=== PATIENT | male | born 1945 | race Caucasian/White ===

== ENCOUNTER → 2023-10-24 13:17 | Outpatient (REF) | payer OTHER, SELFPAY | LOC: RAD 13:17 | PROVIDERS: ATTENDING PHYSICIAN Family Medicine | DX: M25.551 Pain in right hip (principal); M25.552 Pain in left hip | CPT/HCPCS: 73522 ==

== ENCOUNTER 2024-04-23 22:11 | Emergency (ER) | payer OTHER, SELFPAY ==
[2024-04-23 22:25] VITALS: BP 179/71
[2024-04-23 22:30] VITALS: BP 179/71
--- NOTE | 2024-04-23 22:35 | ED.GENMED ---
History of Present Illness
<Korin Blum MD - Last Filed: 04/24/24 00:24>
General
Chief Complaint: Change in Mental Status
Source: patient and records
Time Seen by Provider: 04/23/24 22:26
History of Present Illness
History of Present Illness:
This patient is a 79-year-old male who reportedly was in [facility] and just transferred to a long term today. He was referred from the long term to the emergency department because of agitation and incontinence of stool. History is somewhat
limited from patient. Accu-Chek was noted to be 169. Patient denies any complaints. When asked about events of today he states that he was driving, was pulled over because he was speeding, and was brought here by the police because 'the police
are unfair'. He denies any physical complaints such as chest pain, shortness of breath, abdominal pain, nausea, vomiting.
Past History
<Korin Blum MD - Last Filed: 04/24/24 00:24>
Past History
ED Past Medical History: GERD, Hypercholesterolemia and Other (CVA)
ED Past Surgical History: Other (Hernia, feeding tube)
Social History
Tobacco: Non-smoker
Alcohol: None
Drug: None
Personal:
Living: long term
Phy Exam
<Korin Blum MD - Last Filed: 04/24/24 00:24>
Physical Exam
Physical Exam:
GENERAL: Alert , in no apparent distress
EYE: pupils equal and reactive, no photophobia, EOMI, no nystagmus
NECK: Supple, no significant adenopathy.
ENT: o/p clr, mmm.
CARDIAC: Regular rate and rhythm .
LUNGS: Clear breath sounds bilaterally, no acute respiratory distress, no wheezes/rales/rhonchi
ABDOMEN: Soft, without focal tenderness, no r/g
NEUROLOGICAL: Alert and oriented to person and place but not time, no focal neuro deficits, moves all extremities equally, uncooperative with [id number] exam, cranial nerves II through XII intact
SKIN: Warm and dry, skin intact.
MUSCULOSKELETAL: No edema, well perfused.
PSYCH: Normal and appropriate interaction although confused.
Course
<Korin Blum MD - Last Filed: 04/24/24 00:24>
Orders/Labs/Results
Orders:
Orders
04/23/24 22:34
CT Head W/o Iv Contrast Urgent
Comment:
Reason For Exam: ms change
Cardiac Monitoring- Treatment ONCE
Pulse Ox/cont/shift [RESP] Urgent
Quantity: 1
04/23/24 22:35
Electrocardiogram (*1) Urgent
Reason for Study: Other
Other Reason for Exam: sepsis
EKG- Treatment ONCE
CR Chest - 2 Views Urgent
Comment:
Reason For Exam: ms change
04/23/24 22:53
Complete Blood Count/With Diff Urgent
Comprehensive Metabolic Panel Urgent
Troponin I Urgent
Influenza A+B Rapid Molecular Urgent
LESLEE Source: Nasal Swab
Specimen Description:
04/23/24 23:43
Urinalysis Reflex To Culture Urgent
Date Specimen was Collected: 04/23/24
Time Specimen was Collected: 22:44
04/24/24 04:37
CT Cervical Spine W/o Iv Contr Urgent
Comment:
Reason For Exam: fall out of bed with headstrike
CT Head W/o Iv Contrast Urgent
Comment:
Reason For Exam: fall out of bed with headstrike
Abnormal Lab Results
04/23/24
22:53
RBC 4.40 L 10^6/uL
(4.70-6.10)
MPV 12.3 H fL
(7.4-10.4)
Absolute Monos (auto) 0.9 H 10^3/uL
(0.1-0.6)
Monocytes % 12.8 H %
(1.7-9.3)
Carbon Dioxide 32 H mmol/L
(22-30)
BUN 32 H mg/dl
(9-20)
Glucose 120 H mg/dl
(70-99)
04/23/24 22:53
04/23/24 22:53
Vital Signs
Initial and Last Documented VS:
Initial Vital Signs
BP
179/71
04/23/24 22:25
Last Documented Vital Signs
Temp Pulse Resp BP Pulse Ox
36.8 C 90 27 129/69 95
04/23/24 22:30 04/24/24 05:42 04/24/24 05:42 04/24/24 05:42 04/24/24 05:42
<Francisco Esquivel MD - Last Filed: 04/24/24 07:20>
Orders/Labs/Results
Orders:
Orders
04/23/24 22:34
CT Head W/o Iv Contrast Urgent
Comment:
Reason For Exam: ms change
Cardiac Monitoring- Treatment ONCE
Pulse Ox/cont/shift [RESP] Urgent
Quantity: 1
04/23/24 22:35
Electrocardiogram (*1) Urgent
Reason for Study: Other
Other Reason for Exam: sepsis
EKG- Treatment ONCE
CR Chest - 2 Views Urgent
Comment:
Reason For Exam: ms change
04/23/24 22:53
Complete Blood Count/With Diff Urgent
Comprehensive Metabolic Panel Urgent
Troponin I Urgent
Influenza A+B Rapid Molecular Urgent
LESLEE Source: Nasal Swab
Specimen Description:
04/23/24 23:43
Urinalysis Reflex To Culture Urgent
Date Specimen was Collected: 04/23/24
Time Specimen was Collected: 22:44
04/24/24 04:37
CT Cervical Spine W/o Iv Contr Urgent
Comment:
Reason For Exam: fall out of bed with headstrike
CT Head W/o Iv Contrast Urgent
Comment:
Reason For Exam: fall out of bed with headstrike
Abnormal Lab Results
04/23/24
22:53
RBC 4.40 L 10^6/uL
(4.70-6.10)
MPV 12.3 H fL
(7.4-10.4)
Absolute Monos (auto) 0.9 H 10^3/uL
(0.1-0.6)
Monocytes % 12.8 H %
(1.7-9.3)
Carbon Dioxide 32 H mmol/L
(22-30)
BUN 32 H mg/dl
(9-20)
Glucose 120 H mg/dl
(70-99)
04/23/24 22:53
04/23/24 22:53
Vital Signs
Initial and Last Documented VS:
Initial Vital Signs
BP
179/71
04/23/24 22:25
Last Documented Vital Signs
Temp Pulse Resp BP Pulse Ox
36.8 C 90 27 129/69 95
04/23/24 22:30 04/24/24 05:42 04/24/24 05:42 04/24/24 05:42 04/24/24 05:42
<Francisco Esquivel MD - Last Filed: 04/24/24 07:20>
*Critical Care Note
Total Time (30-74mins, 75-104mins- exclusive of procedures): Not Applicable
<Korin Blum MD - Last Filed: 04/24/24 00:24>
Update Note
Update Note:
Patient presents to the Emergency Department with ____reported agitation and incontinence of stool
Number and Complexity of Problems Addressed at the Encounter
� Chronic conditions affecting care:
� Acute Exacerbation and/or Progression of Chronic Illness:
� Differential Diagnosis includes: But not limited to CVA, increased intracranial pressure, infection, etc. etc.
Amount and/or Complexity of Data to be Reviewed and Analyzed
� I performed an independent evaluation of and my interpretation is:
EKG: Read by me, normal sinus rhythm, LAD, no acute ischemia
CT: Read by vision no acute intracranial process
Xrays: Chest x-ray read by me NAD
Laboratory Studies: Unremarkable
Other:
� Review of other/old records reveals:
� Clinical information was obtained by an independent historian:
� Prescriptions/Medications Considered but not given:
� Further testing considered but not performed:
Risk of Complications and/or Morbidity or Mortality of Patient Management
� Social determinants of health affecting care:
� Discussion with other providers (PCP, Hospitalists, Consultants, etc):
� Escalation of care including admission/observation vs risk of discharge considered: Patient remains calm, not agitated, cooperative pleasant without any complaints. Case discussed with nursing township supervisor at his facility who
essentially refuses to take back until the morning at 8 AM. He states that although patient is not agitated at this time, he does not have any meds to help manage agitation if it was to develop overnight.
ED Attending Note
<Korin Blum MD - Last Filed: 04/24/24 00:24>
-
Portions of this chart may have been created with voice recognition software.� Occasional wrong word or��sound alike� substitutions may have occurred due to the inherent limitations of voice recognition software.
Discharge Plan
Departure
Patient Disposition: [facility]ci/SNF
Date of Disposition: 01/18/25
Time of Disposition: 00:23
Discharge Problem:
Agitation
Instructions: BLOOD PRESSURE
Prescriptions:
No Action
amoxicillin-pot clavulanate 1 TABLET tablet
1 tab PO Q12 Qty: 42 0RF
Referrals:
Marek Heck MD [Family Provider] -
Interventions
Interventions:
*Risk Screen - Suicide Last Done: 04/23/24 22:30
*General Assessment Last Done: 04/23/24 22:30
*Neglect/Abuse Screening Last Done: 04/23/24 22:30
ED- Fall Risk Assessment Last Done: 04/24/24 04:20
*ED COVID-19 Vaccine History Last Done: 04/23/24 22:30
ED- Neurological Assessment Last Done: 04/23/24 23:37
ED Swallowing Screen Last Done: 04/23/24 23:40
Discharge Date and Time
Print Language: TAMAZIGHT
Update
<Francisco Esquivel MD - Last Filed: 04/24/24 07:20>
Progress Note Update
UPDATE (Francisco Esquivel MD)
I have seen and evaluated the patient after signout and reviewed all labs and imaging.
Focused HPI: I resumed care of this 79-year-old male who came to the emergency room from long term due to agitation and stool incontinence. There was apparently concern at his long term that he does not have medications ordered for agitation
and that they cannot manage overnight and so he is being observed here in the emergency room until the morning when he can go back to long term. Unfortunately patient tried to get out of bed tonight while waiting here in the emergency room to go
to the bathroom and had a minor fall from standing. Struck his head on the left side but did not pass out. Immediately helped up back to bed. He says he feels fine and has no complaints.
Physical exam: Patient is awake and alert oriented to self apparently this is his baseline. He answers questions and follows commands. He has very minor contusion of the left forehead. No laceration or abrasion. He has no tenderness of the
cervical spine. He has no tenderness in the thoracic or lumbar spine and no signs of trauma to the back or flank. He has no tenderness of the chest wall/ribs. No abdominal tenderness. He has no reproducible tenderness in the upper or lower
extremities and allows for full passive range of motion without pain.
Medical Decision Makin-year-old male who was seen last night and is pending discharge back to long term in the morning had unfortunately a mechanical fall out of bed when he tried to get up to go to the bathroom himself. Minor head strike
but no other serious injuries noted on full head to toe assessment. Will check CT head and cervical spine in an abundance of caution.
CT head and cervical spine negative for any acute pathology. Patient resting comfortably no complaints. Continue to monitor pending transport home.
[2024-04-23 23:08] LABS: % Basophils 0.3 % (0-2); % Eosinophils 1.6 % (0-6); % Immature Granulocytes 0.3 % (0-0.5); % Lymphocytes 20.5 % (20.5-51.1); % Monocytes 12.8 % (1.7-9.3); % Neutrophils 64.5 % (42.2-75.2); Absolute Eosinophils 0.1 10^3/uL (0-0.7); Absolute Lymphocytes 1.5 10^3/uL (1.2-3.4); Absolute Monocytes 0.9 10^3/uL (0.1-0.6); Absolute Neutrophils 4.7 10^3/uL (1.4-6.5); Hematocrit 40.7 % (39.0-52.0); Hemoglobin 13.5 g/dL (13.0-18.0); Mean Corp Hgb Conc. 33.2 g/dL (33.0-37.0); Mean Corpuscular Hgb 30.7 pg (27.0-31.0); Mean Corpuscular Volume 92.5 fL (80.0-94.0); Mean Platelet Volume 12.3 fL (7.4-10.4); Nucleated Red Blood Cells % 0 % (-); Platelet Count 232 10^3/uL (130-400); Red Cell Dist. Width 13.3 % (11.5-14.5); White Blood Cell Count 7.4 10^3/uL (4.8-10.8)
[2024-04-23 23:29] LABS: ALT (SGPT) 19 U/L (0-50); AST (SGOT) 20 U/L (17-59); Albumin 3.7 g/dl (3.5-5.0); Alkaline Phosphatase 64 U/L (38-126); Blood Urea Nitrogen 32 mg/dl (9-20); Calcium 9.7 mg/dl (8.4-10.2); Carbon Dioxide 32 mmol/L (22-30); Chloride 98 mmol/L (98-107); Estimated Creatinine Clearance 67 ml/min; Glucose 120 mg/dl (70-99); Total Bilirubin 0.2 mg/dl (0.2-1.3); Total Protein 6.4 g/dl (6.3-8.2); eGFR > 60.00
[2024-04-23 23:38] LABS: Sodium 136 mmol/L (135-145)
[2024-04-23 23:44] VITALS: BP 130/78
[2024-04-23 23:47] LABS: Troponin I < 0.012 ng/ml
[2024-04-24] VITALS (7 sets, daily range): BP systolic 107–138; BP diastolic 49–80
[2024-04-24] LABS: Urine Albumin Negative (Neg - Trace); Urine Bilirubin Negative (Negative); Urine Character Slightly Cloudy (Clear); Urine Color Yellow; Urine Glucose Negative (Negative); Urine Ketone Negative (Negative); Urine Leukocyte Negative (Negative); Urine Nitrite Negative (Negative); Urine Occult Blood Negative (Negative); Urine Specific Gravity 1.015 (<1.030); Urine Urobilinogen Negative (Neg - 1+)
--- NOTE | 2024-04-24 05:44 | EDRN ---
Med. sitter device at bedside.
== END 2024-04-24 11:51 ==
LOC: EMR 22:11
PROVIDERS: EMERGENCY PHYSICIAN Emergency Medicine; FAMILY PHYSICIAN Internal Medicine
DX: R45.1 Restlessness and agitation (principal); E78.00 Pure hypercholesterolemia, unspecified; K21.9 Gastro-esophageal reflux disease without esophagitis; Z86.73 Personal history of transient ischemic attack (TIA), and cerebral infarction without residual deficits
CPT/HCPCS: 99285; 70450; 71046; 72125; 80053; 81003; 84484; 85025; 87502; 93005

== ENCOUNTER 2024-05-15 23:44 | Inpatient (IN) | payer OTHER, SELFPAY ==
[2024-05-15] VITALS (11 sets, daily range): BP systolic 96–161; BP diastolic 57–99; BMI 20.2
[2024-05-15 18:33] LABS: % Basophils 0.4 % (0-2); % Eosinophils 1.5 % (0-6); % Immature Granulocytes 0.3 % (0-0.5); % Lymphocytes 26.6 % (20.5-51.1); % Monocytes 9.7 % (1.7-9.3); % Neutrophils 61.5 % (42.2-75.2); Absolute Eosinophils 0.1 10^3/uL (0-0.7); Absolute Lymphocytes 1.8 10^3/uL (1.2-3.4); Absolute Monocytes 0.7 10^3/uL (0.1-0.6); Absolute Neutrophils 4.2 10^3/uL (1.4-6.5); Hematocrit 43.1 % (39.0-52.0); Hemoglobin 14.2 g/dL (13.0-18.0); Mean Corp Hgb Conc. 32.9 g/dL (33.0-37.0); Mean Corpuscular Hgb 30.1 pg (27.0-31.0); Mean Corpuscular Volume 91.3 fL (80.0-94.0); Mean Platelet Volume 12.9 fL (7.4-10.4); Nucleated Red Blood Cells % 0 % (-); Platelet Count 223 10^3/uL (130-400); Red Blood Cell Count 4.72 10^6/uL (4.70-6.10); Red Cell Dist. Width 13.2 % (11.5-14.5); White Blood Cell Count 6.8 10^3/uL (4.8-10.8)
[2024-05-15 18:48] LABS: ALT (SGPT) 19 U/L (0-50); AST (SGOT) 23 U/L (17-59); Albumin 3.6 g/dl (3.5-5.0); Alkaline Phosphatase 72 U/L (38-126); Blood Urea Nitrogen 26 mg/dl (9-20); Calcium 9.6 mg/dl (8.4-10.2); Carbon Dioxide 32 mmol/L (22-30); Chloride 100 mmol/L (98-107); Estimated Creatinine Clearance 57 ml/min; Glucose 95 mg/dl (70-99); Potassium 4.1 mmol/L (3.5-5.1); Sodium 138 mmol/L (135-145); Total Bilirubin 0.7 mg/dl (0.2-1.3); Total Protein 6.4 g/dl (6.3-8.2); eGFR > 60.00
[2024-05-15 18:49] LABS: Urine Albumin 4+ (Neg - Trace); Urine Bilirubin Negative (Negative); Urine Character Bloody (Clear); Urine Color Red; Urine Glucose Negative (Negative); Urine Ketone Negative (Negative); Urine Leukocyte 3+ (Negative); Urine Nitrite Positive (Negative); Urine Occult Blood 4+ (Negative); Urine Specific Gravity 1.015 (<1.030); Urine Urobilinogen Negative (Neg - 1+)
--- NOTE | 2024-05-15 19:39 | ED.GENMED ---
History of Present Illness
<Marbin Tsang PA-C - Last Filed: 05/18/24 09:09>
General
Chief Complaint: Male Genito-Urinary Symptoms
Time Seen by Provider: 05/15/24 18:05
History of Present Illness
History of Present Illness:
79-year-old male with history of TBI (fall of 2023) presents to the emergency department for evaluation of blood in the urine. The patient can provide no history secondary to cognitive dysfunction/aphasia. Nursing facility reports that he was
being changed earlier this afternoon when he noted bloody urine.
Past History
<Marbin Tsang PA-C - Last Filed: 05/18/24 09:09>
Past History
ED Past Medical History: GERD, Hypercholesterolemia and Other (CVA)
ED Past Surgical History: Other (Hernia, feeding tube)
Social History
Tobacco: Non-smoker
Alcohol: None
Drug: None
Personal:
Living: [facility]
Review of Systems
<Marbin Tsang PA-C - Last Filed: 05/18/24 09:09>
Review of Systems
Allergies reviewed?: Yes
All Other Systems: ROS reviewed and negative except as documented in HPI and ROS
Phy Exam
<Marbin Tsang PA-C - Last Filed: 05/18/24 09:09>
Physical Exam
Physical Exam:
GEN: Well appearing, NAD, thin and frail appearing
HEENT: Oral mucosa moist, no scleral icterus
Cardiac: Regular rate and rhythm, no murmurs
Lung: No respiratory distress, no tachypnea
MSK: No gross deformity or injuries
: Blood at the urethral meatus, no penile swelling, no scrotal edema
Skin: Good color, no pallor or jaundice, no rashes
Neuro: Alert, follows commands, profoundly confused
Psych: Calm, cooperative
Course
<Marbin Tsang PA-C - Last Filed: 05/18/24 09:09>
Orders/Labs/Results
Orders:
Orders
05/15/24 18:27
Complete Blood Count/With Diff Urgent
Comprehensive Metabolic Panel Urgent
05/15/24 18:29
Urinalysis Reflex To Culture Urgent
Date Specimen was Collected: 05/15/24
Time Specimen was Collected: 18:28
Urine Microscopic Reflex Cult Urgent
Urine Culture Urgent
LESLEE Source: U
Specimen Description:
Date Specimen was Collected: 05/15/24
Time Specimen was Collected: 18:28
05/15/24 20:18
CT Abd/pel Without Iv Or Oral Urgent
Comment:
Reason For Exam: hematuria
05/15/24 21:26
CBI- Treatment PRN
Solution: NSS
Irrigate to Clear?: Yes
05/15/24 22:29
Admit/Transfer Patient As Directed
Co-Sign Provider:
Level of Care: Inpatient admission
Assign to:: Medical/Surgical
Physician / Group: vivek
Diagnosis: hemorrhagic cystitis
Reason for Hospitalization: hemorrhagic cystitis
Expected length of stay greater than two midnights?: Yes
ELOS- Estimated Length of Stay in days: 2
I certify the patient meets the requirements for IP care: Yes
PRN Pain Medication Management As Directed
May give lesser potent ordered pain med per pt: Yes
preference::
Protocol:: Medication orders for pain may be administered in a
manner that supports deferring to patient preference
when the pt is:
- Requesting an ordered lesser potent pain medication.
Least to most potent pain medications are defined
as: acetaminophen < NSAID < tramadol < opioids
(morphine, oxycodone, hydromorphone).
- Requesting a lesser dose of the same medication IF
ORDERED.
- Requesting a less intrusive route of administration
if both routes are prescribed by the provider (PO <
IV).
05/15/24 22:30
Code Status As Directed
Resuscitation Status: Full Code
05/16/24 00:40
CefTRIAXone [Rocephin] 1,000 mg IV Q24H
05/16/24 00:40
UROLOGY CONSULT Routine
Consulting Provider: Robbie Caro
Was physician already notified: Yes
Activity As Directed
Activity Level: As Tolerated
Pneumatic Compression Sleeves As Directed
Type: Knee high
Vital Signs As Directed
Frequency: Per unit guidelines
DX Deep Vein Thrombosis Video Routine
05/16/24 07:09
Complete Blood Count/With Diff IN AM
Comprehensive Metabolic Panel IN AM
05/16/24 08:00
Polyethylene Glycol Powder [Miralax] 17 grams PO DAILY
Abnormal Lab Results
05/15/24 05/15/24
18:27 18:29
MCHC 32.9 L g/dL
(33.0-37.0)
MPV 12.9 H fL
(7.4-10.4)
Absolute Monos (auto) 0.7 H 10^3/uL
(0.1-0.6)
Monocytes % 9.7 H %
(1.7-9.3)
Carbon Dioxide 32 H mmol/L
(22-30)
BUN 26 H mg/dl
(9-20)
Ur Occult Blood Reflex 4+ A
(Negative)
Urine Nitrite (Reflex) Positive A
(Negative)
Leukocyte Esterase Rfl 3+ A
(Negative)
Urine RBC >100 A /HPF
(0-2)
Urine Albumin (Reflex) 4+ A
(Neg - Trace)
05/15/24 18:27
05/15/24 18:27
Vital Signs
Initial and Last Documented VS:
Initial Vital Signs
Temp Pulse Resp BP Pulse Ox
97.4 F 94 18 161/83 95
05/15/24 18:07 05/15/24 18:07 05/15/24 18:07 05/15/24 18:07 05/15/24 18:07
Last Documented Vital Signs
Temp Pulse Resp BP Pulse Ox
98.4 F 90 20 110/63 97
05/18/24 07:33 05/18/24 07:33 05/18/24 07:33 05/18/24 07:33 05/18/24 07:33
<Derick Gastelum PA-C - Last Filed: 05/15/24 22:09>
Orders/Labs/Results
Orders:
Orders
05/15/24 18:27
Complete Blood Count/With Diff Urgent
Comprehensive Metabolic Panel Urgent
05/15/24 18:29
Urinalysis Reflex To Culture Urgent
Date Specimen was Collected: 05/15/24
Time Specimen was Collected: 18:28
Urine Microscopic Reflex Cult Urgent
Urine Culture Urgent
LESLEE Source: U
Specimen Description:
Date Specimen was Collected: 05/15/24
Time Specimen was Collected: 18:28
05/15/24 20:18
CT Abd/pel Without Iv Or Oral Urgent
Comment:
Reason For Exam: hematuria
05/15/24 21:26
CBI- Treatment PRN
Solution: NSS
Irrigate to Clear?: Yes
05/15/24 22:29
Admit/Transfer Patient As Directed
Co-Sign Provider:
Level of Care: Inpatient admission
Assign to:: Medical/Surgical
Physician / Group: vivek
Diagnosis: hemorrhagic cystitis
Reason for Hospitalization: hemorrhagic cystitis
Expected length of stay greater than two midnights?: Yes
ELOS- Estimated Length of Stay in days: 2
I certify the patient meets the requirements for IP care: Yes
PRN Pain Medication Management As Directed
May give lesser potent ordered pain med per pt: Yes
preference::
Protocol:: Medication orders for pain may be administered in a
manner that supports deferring to patient preference
when the pt is:
- Requesting an ordered lesser potent pain medication.
Least to most potent pain medications are defined
as: acetaminophen < NSAID < tramadol < opioids
(morphine, oxycodone, hydromorphone).
- Requesting a lesser dose of the same medication IF
ORDERED.
- Requesting a less intrusive route of administration
if both routes are prescribed by the provider (PO <
IV).
05/15/24 22:30
Code Status As Directed
Resuscitation Status: Full Code
05/16/24 00:40
CefTRIAXone [Rocephin] 1,000 mg IV Q24H
05/16/24 00:40
UROLOGY CONSULT Routine
Consulting Provider: Robbie Caro
Was physician already notified: Yes
Activity As Directed
Activity Level: As Tolerated
Pneumatic Compression Sleeves As Directed
Type: Knee high
Vital Signs As Directed
Frequency: Per unit guidelines
DX Deep Vein Thrombosis Video Routine
05/16/24 07:09
Complete Blood Count/With Diff IN AM
Comprehensive Metabolic Panel IN AM
05/16/24 08:00
Polyethylene Glycol Powder [Miralax] 17 grams PO DAILY
Abnormal Lab Results
05/15/24 05/15/24
18:27 18:29
MCHC 32.9 L g/dL
(33.0-37.0)
MPV 12.9 H fL
(7.4-10.4)
Absolute Monos (auto) 0.7 H 10^3/uL
(0.1-0.6)
Monocytes % 9.7 H %
(1.7-9.3)
Carbon Dioxide 32 H mmol/L
(22-30)
BUN 26 H mg/dl
(9-20)
Ur Occult Blood Reflex 4+ A
(Negative)
Urine Nitrite (Reflex) Positive A
(Negative)
Leukocyte Esterase Rfl 3+ A
(Negative)
Urine RBC >100 A /HPF
(0-2)
Urine Albumin (Reflex) 4+ A
(Neg - Trace)
05/15/24 18:27
05/15/24 18:27
Vital Signs
Initial and Last Documented VS:
Initial Vital Signs
Temp Pulse Resp BP Pulse Ox
97.4 F 94 18 161/83 95
05/15/24 18:07 05/15/24 18:07 05/15/24 18:07 05/15/24 18:07 05/15/24 18:07
Last Documented Vital Signs
Temp Pulse Resp BP Pulse Ox
98.4 F 90 20 110/63 97
05/18/24 07:33 05/18/24 07:33 05/18/24 07:33 05/18/24 07:33 05/18/24 07:33
<Derick Gastelum PA-C - Last Filed: 05/15/24 22:09>
*Critical Care Note
Total Time (30-74mins, 75-104mins- exclusive of procedures): Not Applicable
<Derick Gastelum PA-C - Last Filed: 05/15/24 22:09>
Update Note
Update Note:
Received care of patient upon signout pending CT. Patient from facility with history of TBI on Lovenox. Presented with gross hematuria. Primary provider contacted urology who recommended CBI. CBI is currently infusing. CT shows blood products
in the bladder but no other obstructive uropathy. Will admit patient to hospital for gross hematuria
ED Attending Note
<Marbin Tsang PA-C - Last Filed: 05/18/24 09:09>
-
Portions of this chart may have been created with voice recognition software.� Occasional wrong word or��sound alike� substitutions may have occurred due to the inherent limitations of voice recognition software.
Discharge Plan
Departure
Patient Disposition: Admit
Date of Disposition: 05/15/24
Time of Disposition: 22:09
Presentation/result/management discussed w/ accepting MD/DO: Hospitalist
Discharge Problem:
Gross hematuria
Interventions
Interventions:
*Risk Screen - Suicide Last Done: 05/15/24 18:15
*General Assessment Last Done: 05/15/24 18:15
*Neglect/Abuse Screening Last Done: 05/15/24 18:15
*ED COVID-19 Vaccine History Last Done: 05/16/24 00:30
*Nursing Disposition Last Done: 05/15/24 23:58
ED-Male Genitourinary Assessment Last Done: 05/15/24 18:15
Discharge Date and Time
Discharge Date/Time: 05/15/24 23:58
[2024-05-15 20:34] LABS: Urine Red Blood Cell >100 /HPF (0-2)
--- NOTE | 2024-05-15 22:32 | HPS.HSE ---
Family Physician
-
Family Physician: Marek Heck
Chief Complaint
-
bloody urine
History of Present Illness
79-year-old male past medical history of TBI in fall 2023, GERD, hypercholesteremia, CVA, presenting for blood in the urine. Patient cannot provide any accurate history due to cognitive dysfunction. Nursing facility noted that he was being changed
and they noted bloody urine. Denies fevers or chills. Denies any burning with urination.
Patient denies any constipation. He states he had a bowel movement yesterday. Denies nausea or vomiting.
Medical History
Past Medical History
Past Medical History: Reports Other (TBI in fall 2023, GERD, hypercholesteremia, CVA)
Past Surgical History: Reports None
Social History
Tobacco: Non-smoker
Alcohol: None
Drug: None
Family History
Family History: Not pertinent
Allergies / Home Medications
Allergies reflects when Allergies were last updated in [facility].
Home Medications with original date entered in [facility]
Allergy/Medication List:
Allergies
Allergy/AdvReac Type Severity Reaction Status Date / Time
fentanyl Allergy Unknown Unknown Verified 05/15/24 18:07
Tetanus Vaccines and Toxoid Allergy Unknown Verified 05/15/24 18:07
[Tetanus Vaccines & Toxoid]
Home Medications
amoxicillin 875 mg-potassium clavulanate 125 mg tablet 1 tab PO Q12 #42 tabs 05/05/19
Review of Systems
-
History Source: Patient
A 12 point ROS was completed and negative except as noted: Yes
Constitutional: Reports No Symptoms
EENT: Reports No Symptoms
Respiratory: Reports No Symptoms
Cardiac: Reports No Symptoms
Abdomen/GI: Reports No Symptoms
: Reports No Symptoms
Musculoskeletal: Reports No Symptoms
Skin: Reports No Symptoms
Neurological: Reports No Symptoms
Endocrine: Reports No Symptoms
Hematologic/Lymphatic: Reports No Symptoms
Psych: Reports No Symptoms
Physical Exam
Vital Signs
Vital Signs
Temp Pulse Resp BP Pulse Ox
97.4 F 102 12 116/73 97
05/15/24 18:07 05/15/24 21:33 05/15/24 21:15 05/15/24 21:00 05/15/24 20:45
Physical Exam
General: Well Developed, Well Nourished and No Apparent Distress
HEENT: NormoCephalic, Moist mucous membranes and Atraumatic
Respiratory: Clear
Cardiac: S1/S2 and Regular Rhythm; No Murmur or Rub
GI: Soft, Non Tender, Non Distended and Normal Bowel Sounds; No Organomegaly
Rectal: Deferred by Provider
Musculoskeletal: No Clubbing, No Cyanosis and No Edema
Skin: No Rash
Neuro: Nonfocal/grossly intact
Laboratory Results
-
05/15/24 18:27
05/15/24 18:27
Laboratory Results
Total Bilirubin 0.7 mg/dl (0.2-1.3) 05/15/24 18:27
AST 23 U/L (17-59) 05/15/24 18:27
ALT 19 U/L (0-50) 05/15/24 18:27
Alkaline Phosphatase 72 U/L (38-126) 05/15/24 18:27
Data Reviewed
-
Lab Data: Labs Reviewed by me
Old Records: Reviewed
Impression/Plan
-
IMPRESSION:
PLAN:
# Hematuria possibly secondary to hemorrhagic cystitis
-Urinalysis showing +3 leukocyte esterase, positive nitrate
-CT scan of abdomen pelvis shows hyperdensity within the urinary bladder likely representing blood products unclear etiology, no obstructive urolithiasis, mild urinary bladder wall thickening
-urine culture pending
-CBI started
-Ceftriaxone
-Urology consulted
Subcutaneous gas along right rectus muscle
-No free air
-As per CT scan
-Unclear etiology as history cannot be obtained
Fecal impaction
-Patient states he had bowel movement yesterday, abdomen not distended and only mildly tender
-Large amount of stool within the distal colon/rectum distended to 7.2 cm, colonic diverticulosis
-Start MiraLAX
Hiatal hernia/GERD
History of TBI in fall 2023
Hypercholesterolemia
Prior CVA
Full code
DVT prophylaxis�SCDs
Regular diet
[2024-05-16 00:15] VITALS: BP 141/91; BMI 16.9
[2024-05-16] MEDS: ROCEPHIN 1000 MG IV ×2 (01:45→23:52)
[2024-05-16] MEDS: FLUSH (NSS) 2 FLUSH IV ×2 (01:46→23:53)
[2024-05-16] MEDS: NSS (PRESERVATIVE FREE) 10 ML IV (01:46)
[2024-05-16] MEDS: STERILE WATER FOR INJECTION 10 ML IV ×2 (01:46→23:52)
[2024-05-16] MEDS: PROTONIX IV 40 MG IV (01:46)
[2024-05-16] MEDS: VALIUM INJECTION 2 MG IV (05:44)
--- NOTE | 2024-05-16 06:30 | PTCARENOTE ---
Pt arrived to floor from ED with 24Fr 3-way catheter that was placed in ED, draining dark punch colored urine. Pt pleasant and aware, alert to self but with pronounced aphasia so conversation was very limited. Patient had significant bladder spasms
from intermittent catheter obstructions from clot fragments through out the night requiring multiple irrigations. Urology made aware and advised exchanging 3-way catheter. Bladder spasms from intermittent catheter obstructions from clot fragments
continued with after new 3 way catheter requiring multiple irrigations again. multiple small clot fragments out and urine would lighten briefly, then return to punch red requiring irrigation again. Urology rounded and hand-irrigated the 3-way
catheter w/ return of moderate clot burden (mostly fragmented) w/ IMMEDIATE clearing of urine to light pink. Continue to monitor for clots, attempt to keep CBI running moderate speed, treat pain.
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
[2024-05-16 07:00] VITALS: BP 127/82
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
[2024-05-16 07:43] LABS: % Basophils 0.2 % (0-2); % Eosinophils 0.1 % (0-6); % Immature Granulocytes 0.4 % (0-0.5); % Lymphocytes 15.3 % (20.5-51.1); % Monocytes 9.8 % (1.7-9.3); % Neutrophils 74.2 % (42.2-75.2); Absolute Immature Granulocytes 0.1 10^3/uL (0-0.05); Absolute Lymphocytes 2.2 10^3/uL (1.2-3.4); Absolute Monocytes 1.4 10^3/uL (0.1-0.6); Absolute Neutrophils 10.4 10^3/uL (1.4-6.5); Hematocrit 41.3 % (39.0-52.0); Hemoglobin 13.3 g/dL (13.0-18.0); Mean Corp Hgb Conc. 32.2 g/dL (33.0-37.0); Mean Corpuscular Hgb 29.6 pg (27.0-31.0); Mean Platelet Volume 13.1 fL (7.4-10.4); Nucleated Red Blood Cells % 0 % (-); Platelet Count 255 10^3/uL (130-400); Red Blood Cell Count 4.49 10^6/uL (4.70-6.10); Red Cell Dist. Width 13.2 % (11.5-14.5)
[2024-05-16 08:02] LABS: ALT (SGPT) 18 U/L (0-50); AST (SGOT) 23 U/L (17-59); Albumin 3.2 g/dl (3.5-5.0); Alkaline Phosphatase 78 U/L (38-126); Blood Urea Nitrogen 27 mg/dl (9-20); Calcium 9.4 mg/dl (8.4-10.2); Carbon Dioxide 32 mmol/L (22-30); Chloride 102 mmol/L (98-107); Estimated Creatinine Clearance 62 ml/min; Glucose 119 mg/dl (70-99); Sodium 139 mmol/L (135-145); Total Bilirubin 0.5 mg/dl (0.2-1.3); Total Protein 6.2 g/dl (6.3-8.2); eGFR > 60.00
[2024-05-16] MEDS: MIRALAX PO (08:35)
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
[2024-05-16 15:00] VITALS: BP 120/82
[2024-05-16] MEDS: PEPCID 20 MG PO (20:20)
[2024-05-16] MEDS: DITROPAN 5 MG PO (20:20)
[2024-05-16] MEDS: CRESTOR 10 MG PO (22:11)
[2024-05-16] MEDS: DESYREL 150 MG PO (22:11)
[2024-05-16] MEDS: REFRESH EYE DROPS (PF) 1 DROPS OPHTH (22:11)
[2024-05-16] MEDS: SENOKOT 8.6 MG PO (22:12)
[2024-05-16] MEDS: SEROQUEL 100 MG PO (22:12)
[2024-05-16 23:03] VITALS: BP 136/79
[2024-05-17 07:05] VITALS: BP 114/62
[2024-05-17 07:17] LABS: % Basophils 0.4 % (0-2); % Eosinophils 0.8 % (0-6); % Immature Granulocytes 0.4 % (0-0.5); % Lymphocytes 21.9 % (20.5-51.1); % Monocytes 11.3 % (1.7-9.3); % Neutrophils 65.2 % (42.2-75.2); Absolute Eosinophils 0.1 10^3/uL (0-0.7); Absolute Lymphocytes 1.8 10^3/uL (1.2-3.4); Absolute Monocytes 0.9 10^3/uL (0.1-0.6); Absolute Neutrophils 5.2 10^3/uL (1.4-6.5); Hematocrit 39.2 % (39.0-52.0); Hemoglobin 13.1 g/dL (13.0-18.0); Mean Corp Hgb Conc. 33.4 g/dL (33.0-37.0); Mean Corpuscular Hgb 29.7 pg (27.0-31.0); Mean Corpuscular Volume 88.9 fL (80.0-94.0); Nucleated Red Blood Cells % 0 % (-); Red Blood Cell Count 4.41 10^6/uL (4.70-6.10); Red Cell Dist. Width 13.2 % (11.5-14.5)
[2024-05-17 07:20] LABS: Blood Urea Nitrogen 20 mg/dl (9-20); Calcium 9.6 mg/dl (8.4-10.2); Carbon Dioxide 26 mmol/L (22-30); Chloride 102 mmol/L (98-107); Estimated Creatinine Clearance 71 ml/min; Glucose 88 mg/dl (70-99); Potassium 4.2 mmol/L (3.5-5.1); Sodium 138 mmol/L (135-145); eGFR > 60.00
[2024-05-17 07:39] LABS: Mean Platelet Volume 13.4 fL (7.4-10.4); Platelet Count 203 10^3/uL (130-400)
--- NOTE | 2024-05-17 07:41 | W.PN.URO.CBU ---
Today's Communication / Plan
-
- OK for diet
- HOLD Xarelto
- Wean CBI through day to keep urine clear and clot-free in tubing
- Hand irrigation q4-6 hrs PRN clot obstruction
- Possible voiding trial 05/18 AM
Assessment / Plan
-
Hematuria with clot retention
H/H stable
UCx => pending
CTAP w/o IV contrast => lobulated increased density within the posterior aspect of the urinary bladder, most likely representing blood products/hematoma. Slight stranding of the fat anterior to the urinary bladder, suggesting the possibility of
cystitis.
24Fr 3-way catheter placed in ED - patient had significant bladder spasms from intermittent catheter obstructions from clot fragments o/n.
Required multiple irrigations by RNs.
Urology advised exchanging for new 3-way catheter.
Urology hand-irrigated 3-way catheter in AM 05/16 w/ return of moderate clot burden (mostly fragmented) w/ IMMEDIATE clearing of urine to light pink.
No evidence of bladder tumor/mass noted on CT imaging - appears to be clot burden since onset of initial bleeding.
Diagnosis
-
Date of Service: May 17, 2024
-
Patient Diagnosis:
Hematuria with clot retention
Subjective
-
Aphasic - difficult to verbalize.
No apparent pain or discomfort.
CBI low rate w/ clear urine in tubing.
Objective
-
Vital Signs
Temp Pulse Resp BP Pulse Ox
97.5 F 115 18 114/62 98
05/17/24 07:05 05/17/24 07:05 05/17/24 07:05 05/17/24 07:05 05/17/24 07:05
Intake and Output
05/16/24 05/17/24 05/18/24
06:59 06:59 06:59
Intake Total 480 / 480
Output Total 50 / 50 1999
Balance -50 / -50 -1520 / -1520
Intake:
Oral fluids 480 / 480
Output:
Straight cath output 150 / 150
True Urine Output from CBI -100 / -100 1999
True urine output from hand 0 / 0
irrigation
Laboratory Results
05/17/24 06:07
05/17/24 06:07
Review of Systems
-
Unable to obtain full review of systems at this time due to: Dementia and Acuity
Physical Exam
-
General - well developed, well nourished, no acute distress
Abdomen - soft, non-tender, non-distended
Genitalia - 24Fr 3-way catheter w/ clear urine in tubing w/o clots on low rate CBI
Skin - warm & dry with no rash
Extremities - no clubbing, no cyanosis, no edema
Care Review
Data Reviewed
Discussed with: Hospitalist and Nursing
CT Scan: Report Pers Reviewed and Image Pers Reviewed
Total Time Spent with Patient (in minutes): 25
[2024-05-17] MEDS: MIRALAX PO ×2 (08:11)
[2024-05-17] MEDS: SYMMETREL SYRUP 50 MG PO (08:12)
[2024-05-17] MEDS: THERAGRAN 1 TABLET PO (08:12)
[2024-05-17] MEDS: SEROQUEL 25 MG PO (08:12)
[2024-05-17] MEDS: REFRESH EYE DROPS (PF) 1 DROPS OPHTH ×4 (08:12→22:12)
[2024-05-17] MEDS: PEPCID 20 MG PO ×2 (08:12→20:05)
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
--- NOTE | 2024-05-17 11:15 | PTCARENOTE ---
Pt pulling at medel catheter this morning, pulled off stat lock. CBI running slowly with clear urine, no clots. Pt place in 4 point restraints with b/l mitts due to pulling at his tubing. See restraint documentation. Pt calm now with restraints.
Stat lock changed on medel this AM.
[2024-05-17 13:38] VITALS: BMI 16.9
[2024-05-17 15:05] VITALS: BP 116/67
--- NOTE | 2024-05-17 15:41 | PTOTSP ---
ST Acute Care Evaluation
Pt currently presents with clinical signs of mild to moderate oropharyngeal dysphagia as evidenced by baseline need for minced and moist solids with prolonged mastication, bolus formation, and bolus clearance as well as baseline diet for mildly
thick liquids with piecemeal deglutition for both solids and liquids indicative of suspected pharyngeal residue that requires subsequent swallows to clear.
Recommendations:
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
- No ARHP just yet due to intermittent lethargy.
- Aspiration and reflux precautions: Pt must be fully awake, alert, and upright for all PO intake; close supervision/assistance for PO intake; small bites/sips; alternate bites/sips; check oral cavity for clearance; slow intake rate.
- ASSEMBLER PING PONG TABLE to f/u re: diet tolerance, trial diet upgrades, trial/assess candidacy for ARHP, and to determine if pt would benefit from a repeat instrumental swallow study.
- Consider a nutrition consult - pt's expressed concerns about recent weight loss (she reports a ~10lb weight loss since admission to [facility]).
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
[2024-05-17] MEDS: DESYREL 150 MG PO (22:12)
[2024-05-17] MEDS: SENOKOT 8.6 MG PO (22:12)
[2024-05-17] MEDS: SEROQUEL 100 MG PO (22:12)
[2024-05-17] MEDS: CRESTOR 10 MG PO (22:13)
[2024-05-17] MEDS: CATAPRES 0.1 MG PO (22:18)
[2024-05-17 23:09] VITALS: BP 131/72
[2024-05-17] MEDS: STERILE WATER FOR INJECTION 10 ML IV (23:25)
[2024-05-17] MEDS: ROCEPHIN 1000 MG IV (23:25)
[2024-05-17] MEDS: FLUSH (NSS) 2 FLUSH IV (23:26)
[2024-05-18 07:33] VITALS: BP 110/63
[2024-05-18 08:17] LABS: % Basophils 0.2 % (0-2); % Eosinophils 1.6 % (0-6); % Immature Granulocytes 0.3 % (0-0.5); % Lymphocytes 18.4 % (20.5-51.1); % Monocytes 10.4 % (1.7-9.3); % Neutrophils 69.1 % (42.2-75.2); Absolute Eosinophils 0.2 10^3/uL (0-0.7); Absolute Lymphocytes 1.9 10^3/uL (1.2-3.4); Absolute Monocytes 1.1 10^3/uL (0.1-0.6); Hematocrit 35.5 % (39.0-52.0); Hemoglobin 11.8 g/dL (13.0-18.0); Mean Corp Hgb Conc. 33.2 g/dL (33.0-37.0); Mean Corpuscular Volume 90.3 fL (80.0-94.0); Mean Platelet Volume 13.2 fL (7.4-10.4); Nucleated Red Blood Cells % 0 % (-); Platelet Count 200 10^3/uL (130-400); Red Blood Cell Count 3.93 10^6/uL (4.70-6.10); Red Cell Dist. Width 13.2 % (11.5-14.5); White Blood Cell Count 10.2 10^3/uL (4.8-10.8)
[2024-05-18] MEDS: MIRALAX 17 GRAMS PO (08:32)
[2024-05-18] MEDS: THERAGRAN 1 TABLET PO (08:40)
[2024-05-18] MEDS: MIRALAX PO (08:41)
[2024-05-18] MEDS: PEPCID 20 MG PO ×2 (08:41→21:36)
[2024-05-18] MEDS: SYMMETREL SYRUP 50 MG PO (08:41)
[2024-05-18] MEDS: SEROQUEL 25 MG PO (08:41)
[2024-05-18 08:42] LABS: Blood Urea Nitrogen 20 mg/dl (9-20); Calcium 9.3 mg/dl (8.4-10.2); Carbon Dioxide 26 mmol/L (22-30); Chloride 104 mmol/L (98-107); Estimated Creatinine Clearance 82 ml/min; Glucose 114 mg/dl (70-99); Potassium 3.9 mmol/L (3.5-5.1); Sodium 138 mmol/L (135-145); eGFR > 60.00
[2024-05-18] MEDS: REFRESH EYE DROPS (PF) 1 DROPS OPHTH ×4 (08:51→21:39)
--- NOTE | 2024-05-18 10:12 | PN.CDI ---
CDI
- -
CDI:
Physician Documentation Request
Admit Date: 05/15/24 23:44
Dear Doctor Mary Alice,
Please review the following and provide your response in the progress notes.
Clinical Indicators:
Digital Account Manager, 05/17
#...RD able to visulize temporal wasting, protrusion of clavical, orbital area sunken in,
#...quad and calf muscle wasting.
#CBW: 124 lbs 9.6 oz BMI 16.9 underweight range (05/16),
#...Pts weight previous visit listed s 135 lbs 04/23 reflective of a 11 lb (8%) weight loss
#...in 1 month signficant.
#With weight loss of > 5% in 1 month and observed muscle and fat wasting pt
#...meets AND/ASPEN criteria for severe protein calorie malnutrition of chronic illness.
Based on the above and your clinical assessment, please clarify the severity of the malnutrition:
Severe protein calorie malnutrition of chronic illness
Other (please specify)
[place] Criteria (ACP Hospitalist 2017)
2 or more criteria must be present for either
non severe or severe malnutrition
Note that the criteria differs related to the
presence of an acute or chronic illness
Chronic Illness
Energy Intake Non Severe: <75% for >1 month
Severe: <75% for >1 month
Weight Loss Non Severe: 5% over 1 month
7.5% over 3 months
10% over 6 months
20% over 1 year
Severe: >5% over 1 month
>7.5% over 3 months
>10% over 6 months
>20% over 1 year
Body Fat Non Severe: Mild Loss
Severe: Severe Loss
Muscle Mass Non Severe: Mild Loss
Severe: Severe Loss
Use of terms such as suspected, likely, concern for, or probable (associated with a specific diagnosis that is being evaluated, monitored, or treated as if it exists) are acceptable and can be coded in the inpatient setting, when documented at the
time of discharge.
Thank you,
Kathia Solorio RN BSN CCDS
CDI Specialist
please contact via tiger text
Please use your independent medical judgment in providing your response.
--- NOTE | 2024-05-18 10:20 | PN.CDI ---
CDI
- -
CDI:
Physician Documentation Request
Admit Date: 05/15/24 23:44
Dear Doctor Mary Alice,
Please review the following and provide your response in the progress notes.
Clinical Indicators:
PN, 05/17
#- HOLD Xarelto and any other blood thinners for now
#Hematuria (with clot retention) possibly secondary to hemorrhagic cystitis
Please clarify the relationship, if any, between these conditions:
Yes, Hemorrhagic Cystitis is enhanced by/associated with/due to Xarelto.
No, Hemorrhagic Cystitis is not enhanced by/associated with/due to Xarelto but it is due to ___. (Please specify)
Other (please specify)
Use of terms such as suspected, likely, concern for, or probable (associated with a specific diagnosis that is being evaluated, monitored, or treated as if it exists) are acceptable and can be coded in the inpatient setting, when documented at the
time of discharge.
Thank you,
Kathia Solorio RN BSN CCDS
CDI Specialist
please contact via tiger text
Please use your independent medical judgment in providing your response.
--- NOTE | 2024-05-18 10:25 | PN.CDI ---
CDI
- -
CDI:
Physician Documentation Request
Admit Date: 05/15/24 23:44
Dear Doctor Mary Alice,
Please review the following and provide your response in the progress notes.
Clinical Indicators:
Laboratory Tests
05/15/24 05/16/24 05/17/24
18:27 07:09 06:07
Hgb 14.2 13.3 13.1
Hct 43.1 41.3 39.2
05/18/24
07:35
Hgb 11.8 L
Hct 35.5 L
Based on the above and your clinical assessment, please clarify, the most likely condition/diagnosis evaluated, monitored and/or treated?
Acute blood loss anemia
Abnormal lab value, clinically insignificant
Other (please specify)
Use of terms such as suspected, likely, concern for, or probable (associated with a specific diagnosis that is being evaluated, monitored, or treated as if it exists) are acceptable and can be coded in the inpatient setting, when documented at the
time of discharge.
Thank you,
Kathia Solorio RN BSN CCDS
CDI Specialist
please contact via tiger text
Please use your independent medical judgment in providing your response.
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
--- NOTE | 2024-05-18 11:37 | W.PN.URO.CBU ---
Today's Communication / Plan
-
- Continue IV Ceftriaxone pending Cx data
- Advise 7-10 day treatment course for cUTI
- Clamp CBI
- Voiding trial in AM 05/19 (Fri) if urine looks reasonable
D/w RN.
D/w Hospitalist.
Assessment / Plan
-
Hematuria with clot retention
cUTI
H/H stable
UCx => GN bacilli
CTAP w/o IV contrast => lobulated increased density within the posterior aspect of the urinary bladder, most likely representing blood products/hematoma. Slight stranding of the fat anterior to the urinary bladder, suggesting the possibility of
cystitis.
24Fr 3-way catheter placed in ED - patient had significant bladder spasms from intermittent catheter obstructions from clot fragments o/n.
Required multiple irrigations by RNs.
Urology advised exchanging for new 3-way catheter.
Urology hand-irrigated 3-way catheter in AM 05/16 w/ return of moderate clot burden (mostly fragmented) w/ IMMEDIATE clearing of urine to light pink.
No evidence of bladder tumor/mass noted on CT imaging - appears to be clot burden since onset of initial bleeding.
Diagnosis
-
Date of Service: May 18, 2024
-
Patient Diagnosis:
Hematuria with clot retention
cUTI - Gram negative bacilli on UCx
Subjective
-
Aphasic, difficult to obtain history.
Urine clear in tubing.
Objective
-
Vital Signs
Temp Pulse Resp BP Pulse Ox
98.4 F 90 20 110/63 97
05/18/24 07:33 05/18/24 07:33 05/18/24 07:33 05/18/24 07:33 05/18/24 07:33
Intake and Output
05/17/24 05/18/24 05/19/24
06:59 06:59 06:59
Intake Total 480 / 480 0 / 0
Output Total 1999 700 / 700
Balance -1520 / -1520 -700 / -700
Intake:
Oral fluids 480 / 480 0 / 0
Output:
True Urine Output from CBI 1999 700 / 700
True urine output from hand 0 / 0
irrigation
Laboratory Results
05/18/24 07:35
05/18/24 07:35
Physical Exam
-
General - no acute distress
Abdomen - soft, non-tender, non-distended
Genitalia - normal, 3-way catheter - urine clear in tubing
Extremities - no clubbing, no cyanosis, no edema
Care Review
Data Reviewed
Discussed with: Hospitalist and Nursing
CT Scan: Report Pers Reviewed and Image Pers Reviewed
[2024-05-18 15:13] VITALS: BP 115/71
[2024-05-18 21:33] VITALS: BP 117/70
[2024-05-18] MEDS: SENOKOT 8.6 MG PO (21:37)
[2024-05-18] MEDS: CRESTOR 10 MG PO (21:37)
[2024-05-18] MEDS: DESYREL 150 MG PO (21:38)
[2024-05-18] MEDS: CATAPRES 0.1 MG PO (21:38)
[2024-05-18] MEDS: SEROQUEL 100 MG PO (21:38)
[2024-05-18 23:35] VITALS: BP 113/69
[2024-05-19] MEDS: STERILE WATER FOR INJECTION 10 ML IV ×2 (00:23→17:43)
[2024-05-19] MEDS: ROCEPHIN 1000 MG IV (00:24)
[2024-05-19 07:48] LABS: % Basophils 0.2 % (0-2); % Eosinophils 3.6 % (0-6); % Immature Granulocytes 0.6 % (0-0.5); % Lymphocytes 16.8 % (20.5-51.1); % Monocytes 11.9 % (1.7-9.3); % Neutrophils 66.9 % (42.2-75.2); Absolute Eosinophils 0.3 10^3/uL (0-0.7); Absolute Immature Granulocytes 0.1 10^3/uL (0-0.05); Absolute Lymphocytes 1.4 10^3/uL (1.2-3.4); Absolute Neutrophils 5.5 10^3/uL (1.4-6.5); Hematocrit 36.5 % (39.0-52.0); Hemoglobin 11.7 g/dL (13.0-18.0); Mean Corp Hgb Conc. 32.1 g/dL (33.0-37.0); Mean Corpuscular Hgb 29.3 pg (27.0-31.0); Mean Corpuscular Volume 91.3 fL (80.0-94.0); Mean Platelet Volume 12.8 fL (7.4-10.4); Nucleated Red Blood Cells % 0 % (-); Platelet Count 216 10^3/uL (130-400); Red Cell Dist. Width 13.3 % (11.5-14.5); White Blood Cell Count 8.2 10^3/uL (4.8-10.8)
[2024-05-19 07:57] VITALS: BP 115/68
[2024-05-19] MEDS: REFRESH EYE DROPS (PF) 1 DROPS OPHTH ×4 (09:13→21:21)
[2024-05-19] MEDS: PEPCID 20 MG PO ×2 (09:13→21:19)
[2024-05-19] MEDS: SYMMETREL SYRUP 50 MG PO (09:14)
[2024-05-19] MEDS: SEROQUEL 25 MG PO (09:14)
[2024-05-19] MEDS: THERAGRAN 1 TABLET PO (09:14)
[2024-05-19] MEDS: MIRALAX 17 GRAMS PO (09:14)
[2024-05-19 11:09] LABS: Blood Urea Nitrogen 21 mg/dl (9-20); Calcium 9.4 mg/dl (8.4-10.2); Carbon Dioxide 29 mmol/L (22-30); Chloride 105 mmol/L (98-107); Estimated Creatinine Clearance 71 ml/min; Glucose 116 mg/dl (70-99); Potassium 3.9 mmol/L (3.5-5.1); Sodium 141 mmol/L (135-145); eGFR > 60.00
--- NOTE | 2024-05-19 13:59 | CM ---
Met with patient and Valeri
Valeri states she is holding bed at [facility] - confirmed this with Nissa liaison
Referral in [facility]
Will need to obtain insurance auth
PLAN: [facility] when medically stable
Report #: [phone]
Fax #: [phone]
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
[2024-05-19 15:05] VITALS: BP 119/70
--- NOTE | 2024-05-19 15:14 | PTOTSP ---
Dysphagia Therapy
Impression: Concern for mild to moderate oral/pharyngeal dysphagia this admission. At risk for changes to sensory response to aspiration given TBI. Video swallow study warranted to objectively assess swallow function prior to liquid advancement.
Plan of care:
1. Continue diet as ordered of IDDSI Level 5 Minced and Moist, IDDSI Level 2 Mildly Thick Liquids
2. Medications: crushed in puree
3. Strategies: awake, alert, and upright for all PO intake, full supervision/assistance, small bites/sips, alternate bites/sips, check oral cavity for clearance, slow intake rate
4. Aspiration Risk Hydration Protocol - SMALL SINGLE SIPS OF WATER (pinch straw) with supervision, only after oral care, only between meals, only without any other food/drink/meds
5. Video swallow study
[2024-05-19] MEDS: MERREM 500 MG IV (17:43)
[2024-05-19 21:18] VITALS: BP 124/75
[2024-05-19] MEDS: SENOKOT 8.6 MG PO (21:20)
[2024-05-19] MEDS: CRESTOR 10 MG PO (21:20)
[2024-05-19] MEDS: SEROQUEL 100 MG PO (21:20)
[2024-05-19] MEDS: CATAPRES 0.1 MG PO (21:20)
[2024-05-19] MEDS: DESYREL 150 MG PO (21:21)
[2024-05-19 23:00] VITALS: BP 110/64
[2024-05-20] MEDS: STERILE WATER FOR INJECTION 10 ML IV ×5 (00:01→23:00)
[2024-05-20] MEDS: MERREM 500 MG IV ×5 (00:01→23:00)
--- NOTE | 2024-05-20 05:00 | PTCARENOTE ---
Patient had medel D/Star on 05/20 at 6am for voiding trial. This RN was told that patient did not void during the day. Patient voided a moderate amount of urine around 9pm. Patient did not void for 6 hours after. Bladder scan showed 350 ml at 3am.
Bladder scan repeated at 5am showing 401 ml. KEAGAN Henriquez notified. Orders for straight cath placed. Care ongoing.
[2024-05-20 07:05] LABS: % Basophils 0.5 % (0-2); % Eosinophils 5.8 % (0-6); % Immature Granulocytes 0.3 % (0-0.5); % Lymphocytes 24.5 % (20.5-51.1); % Monocytes 13.6 % (1.7-9.3); % Neutrophils 55.3 % (42.2-75.2); Absolute Eosinophils 0.4 10^3/uL (0-0.7); Absolute Lymphocytes 1.5 10^3/uL (1.2-3.4); Absolute Monocytes 0.8 10^3/uL (0.1-0.6); Absolute Neutrophils 3.4 10^3/uL (1.4-6.5); Hematocrit 37.1 % (39.0-52.0); Mean Corp Hgb Conc. 32.3 g/dL (33.0-37.0); Mean Corpuscular Hgb 29.8 pg (27.0-31.0); Mean Corpuscular Volume 92.1 fL (80.0-94.0); Mean Platelet Volume 12.4 fL (7.4-10.4); Nucleated Red Blood Cells % 0 % (-); Platelet Count 224 10^3/uL (130-400); Red Blood Cell Count 4.03 10^6/uL (4.70-6.10); Red Cell Dist. Width 13.7 % (11.5-14.5); White Blood Cell Count 6.2 10^3/uL (4.8-10.8)
[2024-05-20 07:35] LABS: Blood Urea Nitrogen 21 mg/dl (9-20); Calcium 9.2 mg/dl (8.4-10.2); Carbon Dioxide 34 mmol/L (22-30); Chloride 104 mmol/L (98-107); Estimated Creatinine Clearance 62 ml/min; Glucose 114 mg/dl (70-99); Potassium 4.1 mmol/L (3.5-5.1); Sodium 142 mmol/L (135-145); eGFR > 60.00
[2024-05-20 08:00] VITALS: BP 143/83
[2024-05-20] MEDS: SEROQUEL 25 MG PO (08:40)
[2024-05-20] MEDS: THERAGRAN 1 TABLET PO (08:40)
[2024-05-20] MEDS: MIRALAX 17 GRAMS PO (08:40)
[2024-05-20] MEDS: SYMMETREL SYRUP 50 MG PO (08:41)
[2024-05-20] MEDS: PEPCID 20 MG PO ×2 (08:41→21:13)
[2024-05-20] MEDS: REFRESH EYE DROPS (PF) 1 DROPS OPHTH ×4 (08:41→21:13)
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
--- NOTE | 2024-05-20 14:10 | PTOTSP ---
Speech Language Pathology
VIDEOFLUOROSCOPIC SWALLOWING EXAMINATION (VSE) completed. Mod oral dysphagia noted characterized by prolonged and incoordinated mastication/bolus formation/A-P transit. Lingual pumping noted at times. Mild-mod pharyngeal dysphagia noted.
Significant pharyngeal residue noted. Penetration/aspiration noted at times.
Pt is at risk for aspiration given impulsivity and cognitive deficits.
Recommend:
(1) Continued IDDSI Level 5 (minced/moist solids) and mildly thick liquids
(2) Aspiration precautions: sit upright, slow rate, ensure oral cavity clear post P.O. intake, cue for cough/reswallow intermittently throughout meal
(3) Can trial meds whole in puree or whole with mildly thick liquids if can orally coordinate
(4) Aspiration Risk Hydration Protocol (ARHP)-allow small straw sips of thin water between meals post oral care given supervision (pinch straw)
(5) BLACK PICKLER to sign off in this level of care. Please reconsult as indicated.
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
[2024-05-20 16:00] VITALS: BP 108/74
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
[2024-05-20] MEDS: SENOKOT 8.6 MG PO (21:13)
[2024-05-20] MEDS: CATAPRES 0.1 MG PO (21:13)
[2024-05-20] MEDS: CRESTOR 10 MG PO (21:13)
[2024-05-20] MEDS: DESYREL 150 MG PO (21:13)
[2024-05-20] MEDS: SEROQUEL 100 MG PO (21:13)
[2024-05-20 23:00] VITALS: BP 94/64
[2024-05-21] MEDS: MERREM 500 MG IV ×3 (05:46→17:31)
[2024-05-21] MEDS: STERILE WATER FOR INJECTION 10 ML IV ×3 (05:48→17:31)
[2024-05-21 07:16] VITALS: BP 107/63
[2024-05-21 07:30] LABS: % Basophils 0.3 % (0-2); % Eosinophils 2.7 % (0-6); % Immature Granulocytes 0.5 % (0-0.5); % Lymphocytes 22.1 % (20.5-51.1); % Monocytes 13.9 % (1.7-9.3); % Neutrophils 60.5 % (42.2-75.2); Absolute Eosinophils 0.2 10^3/uL (0-0.7); Absolute Lymphocytes 1.5 10^3/uL (1.2-3.4); Absolute Monocytes 0.9 10^3/uL (0.1-0.6); Hematocrit 36.1 % (39.0-52.0); Hemoglobin 11.8 g/dL (13.0-18.0); Mean Corp Hgb Conc. 32.7 g/dL (33.0-37.0); Mean Corpuscular Hgb 29.9 pg (27.0-31.0); Mean Corpuscular Volume 91.6 fL (80.0-94.0); Mean Platelet Volume 12.2 fL (7.4-10.4); Nucleated Red Blood Cells % 0 % (-); Platelet Count 229 10^3/uL (130-400); Red Blood Cell Count 3.94 10^6/uL (4.70-6.10); Red Cell Dist. Width 13.8 % (11.5-14.5); White Blood Cell Count 6.6 10^3/uL (4.8-10.8)
[2024-05-21 07:57] LABS: Blood Urea Nitrogen 24 mg/dl (9-20); Calcium 9.6 mg/dl (8.4-10.2); Carbon Dioxide 35 mmol/L (22-30); Chloride 102 mmol/L (98-107); Estimated Creatinine Clearance 49 ml/min; Glucose 117 mg/dl (70-99); Magnesium 2.3 mg/dl (1.6-2.3); Potassium 4.4 mmol/L (3.5-5.1); Sodium 142 mmol/L (135-145); eGFR > 60.00
[2024-05-21] MEDS: THERAGRAN 1 TABLET PO (09:20)
[2024-05-21] MEDS: REFRESH EYE DROPS (PF) 1 DROPS OPHTH ×4 (09:20→22:56)
[2024-05-21] MEDS: SYMMETREL SYRUP 50 MG PO (09:21)
[2024-05-21] MEDS: MIRALAX 17 GRAMS PO (09:21)
[2024-05-21] MEDS: PEPCID 20 MG PO (09:21)
[2024-05-21] MEDS: SEROQUEL 25 MG PO (09:21)
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
[2024-05-21] MEDS: LOW STRENGTH ASPIRIN 81 MG PO (14:48)
[2024-05-21 15:22] VITALS: BP 97/62
[2024-05-21] MEDS: LOVENOX 40 MG SC (17:30)
[2024-05-21] MEDS: FLUSH (NSS) 1 FLUSH IV (17:34)
[2024-05-21] MEDS: DESYREL 150 MG PO (22:55)
[2024-05-21] MEDS: CATAPRES 0.1 MG PO (22:55)
[2024-05-21] MEDS: SENOKOT 8.6 MG PO (22:56)
[2024-05-21] MEDS: CRESTOR 10 MG PO (22:56)
[2024-05-21] MEDS: SEROQUEL 100 MG PO (22:56)
[2024-05-21 23:45] VITALS: BP 97/61
[2024-05-22] MEDS: MERREM 500 MG IV ×3 (01:17→12:37)
[2024-05-22] MEDS: STERILE WATER FOR INJECTION 10 ML IV ×3 (01:19→12:38)
[2024-05-22 07:16] VITALS: BP 112/69
[2024-05-22 08:32] LABS: % Basophils 0.4 % (0-2); % Eosinophils 3.8 % (0-6); % Immature Granulocytes 0.4 % (0-0.5); % Lymphocytes 22.9 % (20.5-51.1); % Monocytes 16.3 % (1.7-9.3); % Neutrophils 56.2 % (42.2-75.2); Absolute Eosinophils 0.2 10^3/uL (0-0.7); Absolute Lymphocytes 1.1 10^3/uL (1.2-3.4); Absolute Monocytes 0.8 10^3/uL (0.1-0.6); Absolute Neutrophils 2.7 10^3/uL (1.4-6.5); Hematocrit 36.3 % (39.0-52.0); Hemoglobin 11.4 g/dL (13.0-18.0); Mean Corp Hgb Conc. 31.4 g/dL (33.0-37.0); Mean Corpuscular Hgb 29.5 pg (27.0-31.0); Mean Platelet Volume 12.3 fL (7.4-10.4); Nucleated Red Blood Cells % 0 % (-); Platelet Count 235 10^3/uL (130-400); Red Blood Cell Count 3.86 10^6/uL (4.70-6.10); Red Cell Dist. Width 13.8 % (11.5-14.5); White Blood Cell Count 4.8 10^3/uL (4.8-10.8)
[2024-05-22 08:58] LABS: Blood Urea Nitrogen 22 mg/dl (9-20); Calcium 9.3 mg/dl (8.4-10.2); Carbon Dioxide 37 mmol/L (22-30); Chloride 105 mmol/L (98-107); Estimated Creatinine Clearance 62 ml/min; Glucose 115 mg/dl (70-99); Potassium 4.2 mmol/L (3.5-5.1); Sodium 145 mmol/L (135-145); eGFR > 60.00
[2024-05-22] MEDS: LOW STRENGTH ASPIRIN 81 MG PO (09:20)
[2024-05-22] MEDS: SEROQUEL 25 MG PO (09:20)
[2024-05-22] MEDS: THERAGRAN 1 TABLET PO (09:20)
[2024-05-22] MEDS: SYMMETREL SYRUP 50 MG PO (09:20)
[2024-05-22] MEDS: PEPCID 20 MG PO (09:20)
[2024-05-22] MEDS: REFRESH EYE DROPS (PF) 1 DROPS OPHTH ×4 (09:21→20:41)
[2024-05-22] MEDS: MIRALAX 17 GRAMS PO (09:23)
--- NOTE | 2024-05-22 10:39 | W.PN.URO.CBU ---
Today's Communication / Plan
-
home when ok with hospitalist sytable urologically
Assessment / Plan
-
resolved hematuroia voiding well home when ok by hospaitalist
cUTI
H/H stable
UCx => GN bacilli
CTAP w/o IV contrast => lobulated increased density within the posterior aspect of the urinary bladder, most likely representing blood products/hematoma. Slight stranding of the fat anterior to the urinary bladder, suggesting the possibility of
cystitis.
24Fr 3-way catheter placed in ED - patient had significant bladder spasms from intermittent catheter obstructions from clot fragments o/n.
Required multiple irrigations by RNs.
Urology advised exchanging for new 3-way catheter.
Urology hand-irrigated 3-way catheter in AM 2/9 w/ return of moderate clot burden (mostly fragmented) w/ IMMEDIATE clearing of urine to light pink.
No evidence of bladder tumor/mass noted on CT imaging - appears to be clot burden since onset of initial bleeding.
Diagnosis
-
Date of Service: May 22, 2024
-
Patient Diagnosis:
Post Op Day:
Patient Diagnosis:
Hematuria with clot retention
cUTI - Gram negative bacilli on UCx
Subjective
-
voiding well
Objective
-
Vital Signs
Temp Pulse Resp BP Pulse Ox
97.4 F 87 17 112/69 98
05/22/24 07:16 05/22/24 07:16 05/22/24 07:16 05/22/24 07:16 05/22/24 07:16
Intake and Output
05/21/24 05/22/24 05/23/24
06:59 06:59 06:59
Intake Total 1500 / 1500 160 / 160
Balance 1500 / 1500 160 / 160
Intake:
Oral fluids 1500 / 1500 120 / 120
IV piggybacks 40 40
Other:
Number of approximated SMALL 1
amounts of urine
How many times incontinent 1
SMALL amount urine
How many times incontinent 1
MODERATE amount urine
How many times incontinent 1 1
SATURATED amount urine
Laboratory Results
05/22/24 07:40
05/22/24 07:40
Review of Systems
-
: No Symptoms
Physical Exam
-
General - well developed, well nourished, no acute distress
Chest - clear bilaterally
Abdomen - soft, non-tender, positive bowel sounds, no CVAT, no incisional pain or distention
Genitalia - normal
Rectal - normal
Skin - warm & dry with no rash
Neuro - AOx3, no motor deficits
Extremities - no clubbing, no cyanosis, no edema
Incision - clean, dry
Dressing - clean, dry, intact
Care Review
Data Reviewed
Discussed with: Nursing
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
[2024-05-22 15:24] VITALS: BP 107/63
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
[2024-05-22] MEDS: INVANZ 60 MG IV (16:28)
[2024-05-22] MEDS: LOVENOX 40 MG SC (16:29)
[2024-05-22] MEDS: SENOKOT 8.6 MG PO (20:41)
[2024-05-22] MEDS: DESYREL 150 MG PO (20:41)
[2024-05-22] MEDS: CRESTOR 10 MG PO (20:41)
[2024-05-22] MEDS: SEROQUEL 100 MG PO (20:41)
[2024-05-22] MEDS: CATAPRES 0.1 MG PO (20:41)
[2024-05-22 20:59] LABS: Glucose - Point of Care 101 mg/dl (70-99)
[2024-05-22 23:38] VITALS: BP 102/68
--- NOTE | 2024-05-23 05:30 | PTCARENOTE ---
Patient incontinent urine at change of shift -- had not urinated throughout rest of shift. Bladder scanned for >350mls -- notified KEAG[facility] [place] -- bladder scan/straight cath orders placed for no void. Straight cathed for 500mls dark yellow missy
urine with sediment. Condom cath replaced following cath -- #25. Will monitor.
[2024-05-23 07:02] LABS: % Basophils 0.5 % (0-2); % Eosinophils 4.1 % (0-6); % Immature Granulocytes 0.7 % (0-0.5); % Lymphocytes 28.9 % (20.5-51.1); % Monocytes 15.7 % (1.7-9.3); % Neutrophils 50.1 % (42.2-75.2); Absolute Eosinophils 0.2 10^3/uL (0-0.7); Absolute Lymphocytes 1.3 10^3/uL (1.2-3.4); Absolute Monocytes 0.7 10^3/uL (0.1-0.6); Absolute Neutrophils 2.2 10^3/uL (1.4-6.5); Hematocrit 36.5 % (39.0-52.0); Hemoglobin 11.4 g/dL (13.0-18.0); Mean Corp Hgb Conc. 31.2 g/dL (33.0-37.0); Mean Corpuscular Hgb 29.5 pg (27.0-31.0); Mean Corpuscular Volume 94.6 fL (80.0-94.0); Mean Platelet Volume 12.2 fL (7.4-10.4); Nucleated Red Blood Cells % 0 % (-); Platelet Count 238 10^3/uL (130-400); Red Blood Cell Count 3.86 10^6/uL (4.70-6.10); Red Cell Dist. Width 13.9 % (11.5-14.5); White Blood Cell Count 4.4 10^3/uL (4.8-10.8)
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
[2024-05-23 07:25] LABS: Blood Urea Nitrogen 23 mg/dl (9-20); Calcium 9.5 mg/dl (8.4-10.2); Carbon Dioxide 34 mmol/L (22-30); Chloride 106 mmol/L (98-107); Estimated Creatinine Clearance 55 ml/min; Glucose 111 mg/dl (70-99); Potassium 4.3 mmol/L (3.5-5.1); Sodium 143 mmol/L (135-145); eGFR > 60.00
[2024-05-23] MEDS: SEROQUEL 25 MG PO (07:52)
[2024-05-23] MEDS: REFRESH EYE DROPS (PF) 1 DROPS OPHTH ×3 (07:52→22:02)
[2024-05-23] MEDS: SYMMETREL SYRUP 50 MG PO (07:53)
[2024-05-23] MEDS: MIRALAX 17 GRAMS PO (07:53)
[2024-05-23] MEDS: PEPCID 20 MG PO (07:53)
[2024-05-23] MEDS: LOW STRENGTH ASPIRIN 81 MG PO (07:54)
[2024-05-23] MEDS: THERAGRAN 1 TABLET PO (07:54)
[2024-05-23 08:37] VITALS: BP 131/86
--- NOTE | 2024-05-23 09:42 | W.PN.URO.CBU ---
Today's Communication / Plan
-
no bladder scans leave condom cath but if distened , ior pain or no void [address] inw=dwelling medel 16 or 18 fr
Assessment / Plan
-
resolved hematuria it was thouight that pt had clot retention with uti on eliquis but may have chronic retention was straight catherd 600 cc last pm for now leave condom cath but if distened ofr no void then just place medel and discahrge with
medel
Diagnosis
-
Date of Service: May 23, 2024
-
Patient Diagnosis:
Post Op Day:
Patient Diagnosis:
Post Op Day:
Patient Diagnosis:
Hematuria with clot retention
cUTI - Gram negative bacilli on UCx
Subjective
-
no complaints but unreliable hisdtorian
Objective
-
Vital Signs
Temp Pulse Resp BP Pulse Ox
97.5 F 108 19 131/86 97
05/23/24 08:37 05/23/24 08:37 05/23/24 08:37 05/23/24 08:37 05/23/24 08:37
Intake and Output
05/22/24 05/23/24 05/24/24
06:59 06:59 06:59
Intake Total 160 / 160 480 / 480
Output Total 1000 / 1000
Balance 160 / 160 -520 / -520
Intake:
Oral fluids 120 / 120 420 / 420
IV piggybacks 40 / 40 60 / 60
Output:
Urine, Voided 500 / 500
Straight cath output 500 / 500
Other:
How many times incontinent 1
SMALL amount urine
How many times incontinent 1
MODERATE amount urine
How many times incontinent 1 1
SATURATED amount urine
Laboratory Results
05/23/24 06:30
05/23/24 06:30
Review of Systems
-
: Difficulty Voiding
Physical Exam
-
General - well developed, well nourished, no acute distress
Chest - clear bilaterally
Abdomen - soft, non-tender, positive bowel sounds, no CVAT, no incisional pain or distention
Genitalia - normal
Rectal - normal
Skin - warm & dry with no rash
Neuro - AOx3, no motor deficits
Extremities - no clubbing, no cyanosis, no edema
Incision - clean, dry
Dressing - clean, dry, intact
Care Review
Data Reviewed
Discussed with: Nursing
--- NOTE | 2024-05-23 10:15 | CM ---
Addendum entered by Nnacy Mullins RN 05/23/24 16:12:
IV antibiotics script faxed to Nissa /[facility] [phone] to check if SNf can accept him.
Original Note:
LM with Nissa at [facility]
Valeri states she is holding bed at [facility] -
Referral updated in care port.
Pt need IV antibiotics also at SNF.
PT OT ordered yesterday. Needs evals for auth.
Will need to obtain insurance auth with [place] [address].
[facility]
Report [phone]

PLAn To [facility] after auth
[2024-05-23 14:36] VITALS: BP 112/67; BP 95/58
[2024-05-23] MEDS: INVANZ 60 MG IV (14:51)
[2024-05-23 16:22] VITALS: BP 99/65
[2024-05-23] MEDS: LOVENOX 40 MG SC (18:15)
[2024-05-23] MEDS: REFRESH EYE DROPS (PF) OPHTH (18:25)
[2024-05-23] MEDS: SEROQUEL 100 MG PO (22:01)
[2024-05-23] MEDS: SENOKOT 8.6 MG PO (22:01)
[2024-05-23] MEDS: CATAPRES 0.1 MG PO (22:01)
[2024-05-23] MEDS: CRESTOR 10 MG PO (22:02)
[2024-05-23] MEDS: DESYREL 150 MG PO (22:02)
[2024-05-23 23:00] VITALS: BP 102/68
[2024-05-24 07:44] LABS: % Basophils 0.4 % (0-2); % Eosinophils 1.9 % (0-6); % Immature Granulocytes 0.4 % (0-0.5); % Lymphocytes 23.2 % (20.5-51.1); % Monocytes 11.8 % (1.7-9.3); % Neutrophils 62.3 % (42.2-75.2); Absolute Eosinophils 0.1 10^3/uL (0-0.7); Absolute Lymphocytes 1.6 10^3/uL (1.2-3.4); Absolute Monocytes 0.8 10^3/uL (0.1-0.6); Absolute Neutrophils 4.2 10^3/uL (1.4-6.5); Hematocrit 39.2 % (39.0-52.0); Hemoglobin 12.3 g/dL (13.0-18.0); Mean Corp Hgb Conc. 31.4 g/dL (33.0-37.0); Mean Corpuscular Hgb 29.9 pg (27.0-31.0); Mean Corpuscular Volume 95.4 fL (80.0-94.0); Mean Platelet Volume 12.1 fL (7.4-10.4); Nucleated Red Blood Cells % 0 % (-); Platelet Count 250 10^3/uL (130-400); Red Blood Cell Count 4.11 10^6/uL (4.70-6.10); Red Cell Dist. Width 13.4 % (11.5-14.5); White Blood Cell Count 6.7 10^3/uL (4.8-10.8)
[2024-05-24] MEDS: LOW STRENGTH ASPIRIN 81 MG PO (07:55)
[2024-05-24] MEDS: REFRESH EYE DROPS (PF) 1 DROPS OPHTH ×2 (07:55→13:13)
[2024-05-24] MEDS: PEPCID 20 MG PO (07:55)
[2024-05-24] MEDS: THERAGRAN 1 TABLET PO (07:55)
[2024-05-24] MEDS: SYMMETREL SYRUP 50 MG PO (07:56)
[2024-05-24] MEDS: SEROQUEL 25 MG PO (07:56)
[2024-05-24] MEDS: MIRALAX 17 GRAMS PO (07:57)
[2024-05-24 08:08] LABS: Blood Urea Nitrogen 25 mg/dl (9-20); Calcium 9.8 mg/dl (8.4-10.2); Carbon Dioxide 36 mmol/L (22-30); Chloride 105 mmol/L (98-107); Estimated Creatinine Clearance 55 ml/min; Glucose 110 mg/dl (70-99); Potassium 4.4 mmol/L (3.5-5.1); Sodium 145 mmol/L (135-145); eGFR > 60.00
[2024-05-24 08:13] VITALS: BP 126/83
--- NOTE | 2024-05-24 12:10 | CM ---
Addendum entered by DANY Lr 05/24/24 13:19:
Patient's signed IMM on patient's behalf. It was reviewed and put in chart. Script from ID securely messaged to [employer] as fax machines on unit were not verifying receipt.
Original Note:
Met with patient's at her request. She confirmed that she would like for patient to return back to [facility]. Placed a call to Nissa in admissions who confirmed bed hold. NPI # for authorization through [employer]. Facility [id number] and
[facility] [id number].
Placed a call to [employer] and spoke with a parts representative named, Lily, who issued auth# [id number]
5 days skilled 05/24-05/28 NRD 05/28. R [phone] and fax# [phone].
Attending updated and stated that patient medically cleared for discharge.
Will update RN.
Will complete medical necessity and transfer sheet to provide to [facility] representative.
Plan: Case management will continue to follow and assist with discharge planning. Back to [facility] SNF.
--- NOTE | 2024-05-24 12:38 | W.PN.URO.CBU ---
Today's Communication / Plan
-
KEEP MEDEL
Assessment / Plan
-
resolved hematuria it was thouight that pt had clot retention with uti on eliquis but may have chronic retention was straight catherd 600 cc last pm for now leave condom cath but if distened ofr no void then just place medel and discahrge with
medel
Diagnosis
-
Date of Service: May 24, 2024
-
Patient Diagnosis:
Post Op Day:
Patient Diagnosis:
Post Op Day:
Patient Diagnosis:
Post Op Day:
Patient Diagnosis:
Hematuria with clot retention
cUTI - Gram negative bacilli on UCx
Subjective
-
PT DID NOT VOID WAS UNASWRE MEDEL PLACED 400CC DRAINED NO BLOOD
Objective
-
Vital Signs
Temp Pulse Resp BP Pulse Ox
98.5 F 85 18 126/83 95
05/24/24 08:13 05/24/24 08:13 05/24/24 08:13 05/24/24 08:13 05/24/24 08:13
Intake and Output
05/23/24 05/24/24 05/25/24
06:59 06:59 06:59
Intake Total 480 / 480 1290 / 1290
Output Total 1000 / 1000
Balance -520 / -520 1290 / 1290
Intake:
Oral fluids 420 / 420 690 / 690
IV fluids (Total) 600 / 600
IV piggybacks 60 / 60
Output:
Urine, Voided 500 / 500
Straight cath output 500 / 500
Other:
How many times incontinent 1
SATURATED amount urine
Laboratory Results
05/24/24 06:53
05/24/24 06:53
Review of Systems
-
: Difficulty Voiding
Physical Exam
-
General - well developed, well nourished, no acute distress
Chest - clear bilaterally
Abdomen - soft, non-tender, positive bowel sounds, no CVAT, no incisional pain or distention
Genitalia - normal
Rectal - normal
Skin - warm & dry with no rash
Neuro - AOx3, no motor deficits
Extremities - no clubbing, no cyanosis, no edema
Incision - clean, dry
Dressing - clean, dry, intact
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
[2024-05-24] MEDS: INVANZ 60 MG IV (13:12)
--- NOTE | 2024-05-24 14:57 | VATNOTE ---
Prior to midline insertion, it was noted that R cephalic PIV site was infiltrated with ertapenem. Skin marked around area of edema. Aspirated a scant amount of fluid, IV removed, extremity elevated, and heat applied immediately. By the end of the
midline insertion procedure swelling had resolved. Pt denied any pain. Resolved at this time.
[2024-05-24 15:30] VITALS: BP 90/56
== END 2024-05-24 20:05 | DRG 689 ==
LOC: 3 WEST ACU 23:44
PROVIDERS: Hospitalist; Physician Assistant; ADMITTING PHYSICIAN Hospitalist; ATTENDING PHYSICIAN Internal Medicine; CONSULT PHYSICIAN Internal Medicine Infectious Disease; CONSULT PHYSICIAN Thoracic Surgery (Cardiothoracic Vascular Surgery); EMERGENCY PHYSICIAN Emergency Medicine; FAMILY PHYSICIAN Internal Medicine
DX: N30.91 Cystitis, unspecified with hematuria (principal); E43 Unspecified severe protein-calorie malnutrition; S22.41XA Multiple fractures of ribs, right side, initial encounter for closed fracture; D62 Acute posthemorrhagic anemia; Z68.1 Body mass index [BMI] 19.9 or less, adult; D68.32 Hemorrhagic disorder due to extrinsic circulating anticoagulants; K56.41 Fecal impaction; K21.9 Gastro-esophageal reflux disease without esophagitis; K44.9 Diaphragmatic hernia without obstruction or gangrene; E78.00 Pure hypercholesterolemia, unspecified; Z87.820 Personal history of traumatic brain injury; V89.2XXA Person injured in unspecified motor-vehicle accident, traffic, initial encounter; Y92.410 Unspecified street and highway as the place of occurrence of the external cause
CPT/HCPCS: 74176; 74230; 80048; 80053; 81003; 81015; 82962; 83735; 85025; 87070; 87077; 87086; 87147; 87186; 92526; 92610; 92611; 93005; 97163; 97167; 99285; J1335

== ENCOUNTER 2024-10-21 16:45 | Emergency (ER) | payer OTHER, SELFPAY ==
[2024-10-21 16:58] VITALS: BP 128/76
[2024-10-21 17:00] VITALS: BP 128/82
--- NOTE | 2024-10-21 17:48 | ED.GENMED ---
History of Present Illness
General
Chief Complaint: Change in Mental Status
Time Seen by Provider: 10/21/24 16:57
History of Present Illness
History of Present Illness:
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 states that he does have a feeding tube that is predominantly dependent on
modified oral diet. For the past 2 days has been spitting out everything he is fed. Does not even appear to be attempting to swallow. No reported fever. No reported vomiting. Patient is unable to provide history
Past History
Past History
ED Past Medical History: GERD, Hypercholesterolemia and Other (CVA)
ED Past Surgical History: Other (Hernia, feeding tube)
Social History
Tobacco: Non-smoker
Alcohol: None
Drug: None
Personal:
Living: detention
Review of Systems
Review of Systems
Allergies reviewed?: Yes
All Other Systems: ROS reviewed and negative except as documented in HPI and ROS
Phy Exam
Physical Exam
Physical Exam:
GEN: Chronically ill-appearing, thin and cachectic, dense right hemiparesis with lower extremity contractures
HEENT: Oral mucosa moist, no scleral icterus
Cardiac: Regular rate
Lung: No respiratory distress, no tachypnea
Abdomen: Soft, left upper quadrant feeding tube in place
MSK: No gross deformity or injuries
Skin: Good color, no pallor or jaundice, no rashes
Neuro: Eyes open, does not follow commands
Psych: Calm, cooperative
Course
Orders/Labs/Results
Orders:
Orders
10/21/24 17:47
Straight cath- Treatment ONCE
0.9% Sodium Chloride 1000 ml [Nss] 1,000 ml IV BOLUS
10/21/24 17:59
COVID-19 Antigen Urgent
Source: Nasal Swab
Complete Blood Count/With Diff Urgent
Comprehensive Metabolic Panel Urgent
Urinalysis Reflex To Culture Urgent
Date Specimen was Collected: 10/21/24
Time Specimen was Collected: 17:49
Urine Microscopic Reflex Cult Urgent
Abnormal Lab Results
10/21/24
17:59
RBC 4.26 L 10^6/uL
(4.70-6.10)
Hgb 12.0 L g/dL
(13.0-18.0)
Hct 37.4 L %
(39.0-52.0)
MCHC 32.1 L g/dL
(33.0-37.0)
RDW 14.6 H %
(11.5-14.5)
MPV 11.9 H fL
(7.4-10.4)
Absolute Monos (auto) 1.0 H 10^3/uL
(0.1-0.6)
Monocytes % 15.3 H %
(1.7-9.3)
Carbon Dioxide 32 H mmol/L
(22-30)
Glucose 109 H mg/dl
(70-99)
Total Protein 6.2 L g/dl
(6.3-8.2)
Albumin 3.4 L g/dl
(3.5-5.0)
Urine Albumin (Reflex) 1+ A
(Neg - Trace)
10/21/24 17:59
10/21/24 17:59
Vital Signs
Initial and Last Documented VS:
Initial Vital Signs
Temp BP
97.7 F 128/76
10/21/24 16:58 10/21/24 16:58
Last Documented Vital Signs
Temp Pulse BP Pulse Ox
97.7 F 89 128/82 100
10/21/24 16:58 10/21/24 17:00 10/21/24 17:00 10/21/24 17:48
MDM/Problems Addressed
MDM/Problems Addressed:
Workup is under. May be behavioral changes that he is refusing oral feedings. Encouraged his detention to increase his tube feeding dependence at this point
*Pulse Oximetry
SaO2: 100
Oxygen Mode of Delivery: Room air
Patient hypoxic: no
*Critical Care Note
Total Time (30-74mins, 75-104mins- exclusive of procedures): Not Applicable
ED Attending Note
-
Portions of this chart may have been created with voice recognition software.� Occasional wrong word or��sound alike� substitutions may have occurred due to the inherent limitations of voice recognition software.
Discharge Plan
Departure
Patient Disposition: Home (Routine Discharge)
Date of Disposition: 10/21/24
Time of Disposition: 19:00
Patient with high blood pressure during this ER visit?: No
Discharge Problem:
Poor appetite
Prescriptions:
No Action
famotidine [Pepcid] 20 mg Tablet
20 mg PO BID
aspirin 81 mg Tablet,Chewable
81 mg PO DAILY
quetiapine [Seroquel] 25 mg Tablet
25 mg PO DAILY
quetiapine [Seroquel] 100 mg Tablet
100 mg PO HS
enoxaparin [Lovenox] 40 mg/0.4 mL Syringe
40 mg SC DAILY
trazodone 150 mg Tablet
150 mg PO HS
amantadine HCl 50 mg/5 mL Solution
50 mg PO DAILY
guanfacine 1 mg Tablet
1 mg PO HS
sennosides [Senna Laxative] 8.6 mg Tablet
8.6 mg PO HS
polyethylene glycol 3350 [Miralax] 17 gram Powder In Packet
17 g PO DAILY
bisacodyl [Dulcolax (bisacodyl)] 10 mg Suppository
10 mg NM DAILYPRN MDD if MOM ineffective in 24 hrs PRN (Reason: constipation)
Daily Multivitamin-Minerals Tablet
1 tab PO DAILY
rosuvastatin 10 mg Tablet
10 mg PO HS
acetaminophen 325 mg Tablet
650 mg PO Q4H PRN (Reason: pain/temp >100F)
magnesium hydroxide [Milk of Magnesia] 400 mg/5 mL Suspension
30 ml PO DAILYPRN PRN (Reason: if no BM in 3 days)
Fleet Enema 19-7 gram/118 mL Enema
118 ml NM DAILYPRN PRN (Reason: if dulcolax ineffective after 24hrs)
menthol-zinc oxide [Moisture Barrier Ointment] 0.44-20.6 % Ointment
1 applic TOPICAL TID
Artificial Tears (cmc) 1 % Drops
1 drp BOTH EYES QID
Ertapenem [Invanz] 1000 MG
0.9% Sodium Chloride [Nss] 50 ML
120 mls/hr IV Q24H
Ordered By: Trenton Roger MD
Last Taken: Unknown
Referrals:
Marek Heck MD [Family Provider]
Activity Restrictions/Additional Instructions:
Walter will likely require increased tube feeding demand given his refusal to eat oral nutrition. Please have in-house physician and chalk tester review his case to increase his tube feeding volumes. He was given IV fluids in the ED
Interventions
Interventions:
*Risk Screen - Suicide Last Done: 10/21/24 16:48
*General Assessment Last Done: 10/21/24 16:48
*Neglect/Abuse Screening Last Done: 10/21/24 16:48
*ED- Fall Risk Assessment Last Done: 10/21/24 16:48
*ED COVID-19 Vaccine History Last Done: 10/21/24 16:48
ED- Neurological Assessment Last Done: 10/21/24 16:48
Discharge Date and Time
Print Language: ICELANDIC
[2024-10-21 18:19] LABS: Hematocrit 37.4 % (39.0-52.0); Hemoglobin 12.0 g/dL (13.0-18.0); Mean Corp Hgb Conc. 32.1 g/dL (33.0-37.0); Mean Corpuscular Volume 87.8 fL (80.0-94.0); Nucleated Red Blood Cells % 0 % (-); Platelet Count 285 10^3/uL (130-400); Red Cell Dist. Width 14.6 % (11.5-14.5)
[2024-10-21] MEDS: NSS 1000 IV (18:20)
[2024-10-21 18:25] LABS: Urine Character Clear (Clear)
[2024-10-21 18:30] LABS: COVID-19 Antigen Negative (Negative)
[2024-10-21 18:31] LABS: ALT (SGPT) 16 U/L (0-50); AST (SGOT) 24 U/L (17-59); Albumin 3.4 g/dl (3.5-5.0); Alkaline Phosphatase 67 U/L (38-126); Blood Urea Nitrogen 19 mg/dl (9-20); Calcium 9.1 mg/dl (8.4-10.2); Carbon Dioxide 32 mmol/L (22-30); Chloride 102 mmol/L (98-107); Glucose 109 mg/dl (70-99); Potassium 4.2 mmol/L (3.5-5.1); Sodium 137 mmol/L (135-145); Total Protein 6.2 g/dl (6.3-8.2); eGFR > 60.00
[2024-10-21 18:36] LABS: Urine Squamous Cell 0-2 /LPF (Few)
[2024-10-21 18:44] LABS: Urine Red Blood Cell 0-2 /HPF (0-2); Urine White Cell 0-2 /HPF (0-5)
[2024-10-21 20:41] VITALS: BP 130/79
== END 2024-10-21 20:45 | disposition home or self-care (01) ==
LOC: EMR 16:45
PROVIDERS: Physician Assistant; EMERGENCY PHYSICIAN Student in an Organized Health Care Education/Training Program; FAMILY PHYSICIAN Internal Medicine
DX: R63.0 Anorexia (principal); K21.9 Gastro-esophageal reflux disease without esophagitis; E78.00 Pure hypercholesterolemia, unspecified; Z86.73 Personal history of transient ischemic attack (TIA), and cerebral infarction without residual deficits
CPT/HCPCS: 99283; 96360; 80053; 81003; 81015; 85025; 87811